=== PATIENT | female | born 1995 | race Caucasian/White ===

== ENCOUNTER 2016-10-12 04:56 | Emergency (ER) | payer OTHER ==
[~2016-10-12 04:56] MED LIST: ALBUTEROL17 GM; BACTRIM DS TABL1 TA1 PO; BACTRIM DS TABL1 TA2 PO; CHILDREN'S1 MG/1 M1 PO; CLARITIN10 M3; CLARITIN10 MG PO; DIABETIC TUSSIN1 ML PO; DIFLUCAN50 MG PO; FLEXERIL PO; IBUPROFEN PO; IBUPROFEN600 MG PO; IMITREX PO; IUD; KEFLEX500 MG PO; LORTAB 5/500 TA1 TA1 PO; MOTRIN400 MG PO; NASONEX17 GM; SUDAFED30 M1 PO; TOPAMAX PO
[2016-11-25] MEDS ORDERED: FLEXERIL10 MG PO (10:29)
== END 2016-10-12 05:34 | disposition home or self-care (01) ==
LOC: CED 04:56
DX: S61.213A Laceration without foreign body of left middle finger without damage to nail, initial encounter (principal); G43.909 Migraine, unspecified, not intractable, without status migrainosus; F17.210 Nicotine dependence, cigarettes, uncomplicated; W26.0XXA Contact with knife, initial encounter; Y92.009 Unspecified place in unspecified non-institutional (private) residence as the place of occurrence of the external cause
CPT/HCPCS: 99283

== ENCOUNTER 2016-10-26 04:13 | Emergency (ER) | payer OTHER ==
--- NOTE | ~2016-10-26 | CT101 ---
[facility] A Service of [facility] RADIOLOGY TEXT RESULTS PATIENT: MIKALA RUCKER LOCATION: [facility] : [birth year] UNIT #: [id number] AGE: [address]: Lance Garcia SEX: F ORDER DR: [id number] [id number] [facility]. [place], [place] [address] [id number] MR#: [id number] Acc #: [id number] NAME: MIKALA RUCKER : 1995 SEX: F STUDY DATE/TIME: 10/26/2016 4:30 UNIT: [facility] ROOM: STUDY DESCRIPTION: CT Maxillofacial Area Wo Cont Attending Physician: Lance Garcia P.A.-C. Ordering Physician: Lance Garcia P.A.-C. Primary Care Physician: Gladys Elder A.P.R.N. MEDICAL IMAGING REPORT This report is preliminary unless electronic signature is present EXAM Facial bone CT no contrast 10/26/2016 INDICATION Jaw pain on the left after eating a week ago. Soft tissue swelling for a week. No known injury. TECHNIQUE Noncontrast CT of the facial bones was performed. Coronal and sagittal reformats performed. This CT examination was performed with one or more of the following radiation dose reduction techniques: automatic exposure control, adjustment of mA and/or kV according to patient size, and iterative reconstruction. COMPARISON None. FINDINGS The examination is negative. There is no facial bone fracture. Left temporomandibular joint intact. No evidence of dislocation or subluxation. Mineralization unremarkable. Included sinuses appear clear. Orbital floors intact. Incidental metallic jewelry in the periorbital soft tissues on the left. Globes appear intact. Reactive-appearing neck soft tissue lymph nodes present bilaterally. IMPRESSION Negative facial bone CT. No evidence of acute fracture. Left temporomandibular joint appears intact. Dictated by... Henry Hays M.D. [facility] A Service [facility] RADIOLOGY TEXT RESULTS PATIENT: MIKALA RUCKER LOCATION: [facility] : [birth year] UNIT #: [id number] AGE: [address]: Lance Garcia SEX: F ORDER DR: THIS IS AN ELECTRONICALLY VERIFIED REPORT Henry Hays M.D. at 10/26/2016 10:03 PM MARISSA/karuna TD: 10/26/2016 10:22 JOB #: [id number] MEDICAL IMAGING REPORT Page 1 of 1 COPY
[2016-11-25] MEDS ORDERED: FLEXERIL10 MG PO (10:29)
== END 2016-10-26 05:35 | disposition home or self-care (01) ==
LOC: CED 04:13
DX: M26.622 Arthralgia of left temporomandibular joint (principal); G43.909 Migraine, unspecified, not intractable, without status migrainosus; F17.210 Nicotine dependence, cigarettes, uncomplicated
CPT/HCPCS: 70486; 84703; 99284

== ENCOUNTER 2016-11-25 11:26 | Emergency (ER) | payer OTHER ==
[2016-11-25 10:56] LABS: URINE SOURCE CLEAN CATCH
[2016-11-25 10:56] LABS: BASOPHIL% 0.4 % (0-2.5); EOSINOPHIL# 0.1 X10e3 (0-0.7); EOSINOPHIL% 1.9 % (0.0-7.0); HEMATOCRIT 41.5 % (35.0-45.0); HEMOGLOBIN 14.2 gm/dL (12.0-16.0); LYMPHOCYTE# 1.9 X10e3 (1.0-3.5); LYMPHOCYTE% 31.4 % (17.0-45.0); MEAN CELL VOLUME 91.6 FL (83-96); MEAN CORPUSCULAR HEMOGLOBIN 31.4 PG (28-34); MEAN CORPUSCULAR HGB CONC 34.3 g/dL (30-36); MEAN PLATELET VOLUME 8.8 FL (6.5-11.5); MONOCYTE# 0.6 X10e3 (0-1.0); NEUTROPHIL# 3.4 X10e3 (1.5-7.1); NEUTROPHIL% 56.3 % (40-75); PLATELET COUNT 206 X10e3 (140-420); RED BLOOD COUNT 4.53 X10e (3.90-5.30)
[2016-11-25 11:00] LABS: URINE BILIRUBIN NEG (NEG); URINE BLOOD NEG (NEG); URINE COLOR YELLOW; URINE GLUCOSE NEG (NORM); URINE KETONE NEG (NEG); URINE LEUKOCYTE ESTERASE 1+ (NEG); URINE NITRATE NEG (NEG); URINE PROTEIN NEG (NEG)
[2016-11-25 11:02] LABS: DIFF IND NO
[2016-11-25 11:02] LABS: MICRO INDICATED? YES; URINE APPEARANCE SL HAZY
[2016-11-25 11:16] LABS: ALBUMIN SERUM 3.9 g/dL (3.5-5.0); BILIRUBIN, DIRECT 0.1 mg/dL (0.0-0.2); BILIRUBIN,INDIRECT 0.1 mg/dL (0.0-0.9); BILIRUBIN,TOTAL 0.2 mg/dL (0.2-2.0); BUN/CREATININE RATIO 13.33; CALCIUM SERUM 8.5 mg/dL (8.4-10.2); CREATININE SERUM 0.6 mg/dL (0.6-1.4); GLOM FILT RATE Estimated 131.2 mL/min (>60); POTASSIUM 3.6 mmol/L (3.5-5.1); PROTEIN TOTAL SERUM 6.5 g/dL (6.0-8.3)
[2016-11-25 11:18] LABS: URINE RBC 0-2 /[HPF] (0-2)
[2016-11-25 11:19] LABS: CULTURE INDICATED? YES; URINE BACTERIA 2+ (NEG); URINE MUCUS PRESENT; URINE SQUAMOUS EPITHELIAL CELL MANY /[HPF]
[~2016-11-25 11:26] MED LIST changes: +FLEXERIL10 MG PO
== END 2016-11-25 12:19 | disposition home or self-care (01) ==
LOC: SED 11:26
PROVIDERS: Emergency Medicine
DX: N39.0 Urinary tract infection, site not specified (principal); R11.2 Nausea with vomiting, unspecified; R19.7 Diarrhea, unspecified; F17.210 Nicotine dependence, cigarettes, uncomplicated
CPT/HCPCS: 36415; 80048; 80076; 81003; 82150; 83690; 84703; 85025; 87086; 96361; 96374; 99284; J2405